=== PATIENT | female | born 1950 | race African-American/Black ===

== ENCOUNTER 2018-03-31 08:45 | Inpatient (IN) | payer OTHER ==
[~2018-03-31] VITALS: Ht 160 cm; Wt 146.1 kg
== END 2018-04-07 17:29 | disposition home or self-care (01) | DRG 470 ==
LOC: SURH 04-05 05:21 → O/R 04-05 05:21 → SURH 04-05 07:00 → EDBD 04-05 08:45 → SURH 04-05 08:45
PROVIDERS: ADMIT Orthopaedic Surgery
PROC: 0SRC0J9 Replacement of Right Knee Joint with Synthetic Substitute, Cemented, Open Approach (ICD-10-PCS; principal; 2018-04-05 07:00)
DX: M17.11 Unilateral primary osteoarthritis, right knee (principal); D62 Acute posthemorrhagic anemia; E66.01 Morbid (severe) obesity due to excess calories; Z72.0 Tobacco use

== ENCOUNTER → 2018-04-01 | Outpatient (CLI) | payer OTHER | END | disposition home or self-care (01) | LOC: NUCLEAR 15:01 | DX: I42.0 Dilated cardiomyopathy (principal) ==

== ENCOUNTER 2019-04-04 08:50 | Emergency (ER) | payer OTHER ==
[~2019-04-04] VITALS: Ht 160 cm; Wt 142.9 kg
[2019-04-04] MEDS ORDERED: LOSARTAN POTASS50 MG PO (09:10)
[2019-04-04] MEDS ORDERED: FORTAMET500 MG PO (09:10)
[2019-04-04] MEDS ORDERED: TOPROL XL50 M1 PO (09:11)
[2019-04-04] MEDS ORDERED: NAPR500T14 PO (09:12)
== END 2019-04-04 11:41 | disposition home or self-care (01) ==
LOC: ER 08:50
DX: M25.561 Pain in right knee (principal)

== ENCOUNTER 2019-04-24 19:34 | Inpatient (IN) | payer OTHER ==
[~2019-04-24] VITALS: Ht 160 cm; Wt 142.9 kg
[~2019-04-24 19:34] MED LIST: FORTAMET500 MG PO; LOSARTAN POTASS50 MG PO; NAPR500T14 PO; TOPROL XL50 M1 PO
[2019-04-24] MEDS ORDERED: HUMALOG100 UNIT/2 SQ (20:00)
[2019-04-24] MEDS ORDERED: ATORVASTATIN CA20 MG PO (20:00)
== END 2019-05-04 19:55 | disposition home health service (06) | DRG 988 ==
LOC: ER 19:34 → SEC-K 04-25 14:32 → MEDJ 04-25 14:32 → SEC-K 04-26 18:12 → MEDJ 04-26 18:14
PROVIDERS: Orthopaedic Surgery; ADMIT Specialist
PROC: B54DZZZ Ultrasonography of Bilateral Lower Extremity Veins (ICD-10-PCS; 2019-04-25)
PROC: 8E0ZXY6 Isolation (ICD-10-PCS; 2019-04-25)
PROC: 0T9B70Z Drainage of Bladder with Drainage Device, Via Natural or Artificial Opening (ICD-10-PCS; 2019-04-25)
PROC: 02HV33Z Insertion of Infusion Device into Superior Vena Cava, Percutaneous Approach (ICD-10-PCS; 2019-04-26)
PROC: 0S9C00Z Drainage of Right Knee Joint with Drainage Device, Open Approach (ICD-10-PCS; principal; 2019-04-29 07:00)
DX: L03.116 Cellulitis of left lower limb (principal); M00.861 Arthritis due to other bacteria, right knee; D62 Acute posthemorrhagic anemia; B37.41 Candidal cystitis and urethritis; E66.01 Morbid (severe) obesity due to excess calories; I10 Essential (primary) hypertension; I87.2 Venous insufficiency (chronic) (peripheral); N39.8 Other specified disorders of urinary system; E11.9 Type 2 diabetes mellitus without complications; A49.02 Methicillin resistant Staphylococcus aureus infection, unspecified site; Z79.4 Long term (current) use of insulin
CPT/HCPCS: 73721

== ENCOUNTER 2019-11-01 08:00 | Inpatient (IN) | payer OTHER ==
[~2019-11-01] VITALS: Ht 160 cm; Wt 142.9 kg
[~2019-11-01 08:00] MED LIST changes: +ATORVASTATIN CA20 MG PO; +HUMALOG100 UNIT/2 SQ
== END 2019-11-20 14:48 | DRG 488 ==
LOC: O/R 11-07 08:00 → SURH 11-14 08:00 → O/R 11-14 10:01 → SURH 11-14 11:30
PROVIDERS: ADMIT Orthopaedic Surgery; ATTEND Orthopaedic Surgery
PROC: 0SBC0ZX Excision of Right Knee Joint, Open Approach, Diagnostic (ICD-10-PCS; 2019-11-14)
PROC: 0SBC0ZZ Excision of Right Knee Joint, Open Approach (ICD-10-PCS; principal; 2019-11-14 11:30)
PROC: 30233N1 Transfusion of Nonautologous Red Blood Cells into Peripheral Vein, Percutaneous Approach (ICD-10-PCS; 2019-11-15)
PROC: 4A033R1 Measurement of Arterial Saturation, Peripheral, Percutaneous Approach (ICD-10-PCS; 2019-11-16)
PROC: 3E0F7GC Introduction of Other Therapeutic Substance into Respiratory Tract, Via Natural or Artificial Opening (ICD-10-PCS; 2019-11-16)
PROC: 02HV33Z Insertion of Infusion Device into Superior Vena Cava, Percutaneous Approach (ICD-10-PCS; 2019-11-17)
DX: T84.032A Mechanical loosening of internal right knee prosthetic joint, initial encounter (principal); M00.061 Staphylococcal arthritis, right knee; D62 Acute posthemorrhagic anemia; R06.89 Other abnormalities of breathing; B95.61 Methicillin susceptible Staphylococcus aureus infection as the cause of diseases classified elsewhere; M65.161 Other infective (teno)synovitis, right knee; T84.84XA Pain due to internal orthopedic prosthetic devices, implants and grafts, initial encounter; I10 Essential (primary) hypertension; E66.01 Morbid (severe) obesity due to excess calories; E11.9 Type 2 diabetes mellitus without complications; Z79.4 Long term (current) use of insulin

== ENCOUNTER 2019-12-18 09:31 | Inpatient (IN) | payer OTHER ==
[~2019-12-18] VITALS: Ht 162.6 cm; Wt 113.4 kg
--- NOTE | 2019-12-18 09:33 | NUR ---
SE RECIBE PTE EN AMBULANCIA ACOMPANADA DE PARAMEDICOS. PTE ALERTA Y ORIENTADA X3 TRANSF[facility]IDA DE [facility] POR QUE[facility] PRINCIPAL DE FIEBRE, DIFICULTAD PARA RESPIRAR Y AREA DE CIRUGIA EN RODILLA R+ INFECTADA, CON HERIDA ABIERTA, DOS PUNTOS ABIERTOS, CON SECRECIONES VERDOSAS. AL MOMENTO PTE NO REFIERE DOLOR YA QUE LE ADMINISTRARON 2 TYLENOL ANTES DE LLEGAR.
--- NOTE | 2019-12-18 09:37 | NUR ---
PTE CON CANULA NASAL @ 3 LITROS SATURANDO AL 96% CON OXIMETRIA DE PULSO.
--- NOTE | 2019-12-18 09:41 | NUR ---
PTE CON PICC LINE RN TANI RT, SE NOTIFICA PARA EVALUACION DE PICC LINE YA QUE PTE REFIERE LE KAYE ESTADO MOLESTANDO.
--- NOTE | 2019-12-18 12:26 | NUR ---
PTE EVALUADA POR LA DRA LE QUIEN [place] EL [place]. SE ORIENTA SOBRE EL MISMO, LO CUAL PTE Y FAMILIAR REFIEREN ENTENDER. SE REALIZAN MUESTRAS DE LABORATORIO SIGUIENDO MEDIDAS ASEPTICAS Y ESTERILES. SE CANALIZXA, AREA HERNAN DE EDEMA O ERITEMA. SE ADMINISTRA MEDICAMENTO. SE COLOCA MARQUES MATA ORDEN MEDICA Y SIGUIENDO MEDIDAS ASEPTICAS Y ESTERILES, EGRESO APROXIMADO DE 400ML COLOR AMARILLO INTENSO. SE NOTIFICA A MS MADRIGAL PARA EVALUACION DE SKIN TEAM POR AREA ALREDEDOR DEL PANAL CON ERITEMA E IRRITACION. MS BEATRIZ DE PICC LINE EVALUARA PTE PARA FUNCIONAMIENTO DEL MISMO.
--- NOTE | 2019-12-18 12:40 | NUR ---
SE EVALUA PACIENTE QUIEN LLEGA A JAY DE EMERGENCIAS PROCEDENTE DE [facility]. PACIENTE CON PICC LINE RT, 32 FLYNN DE INSERTADO CANALIZADO EN VENA BASILICA. PICC LINE INSERTADO EN ESTA INSTITUCION EL 11/17/19 SIN [facility]ES [facility]. PACIENTE FUE NILDA DE BRANDIE EL 11/20/19 PARA CONTINUAR CON TRATAMIENTO DE ANTIBIOTICOS EN [facility]. SE EVALUA PICC LINE Y SE SE OFRECE CUIDADO LOCAL. SE OBSERVA AREA DE INSERCION HERNAN DE SIGNOS DE INFECCION. SE REALIZA CAMBIO DE STATLOCK DEJANDO CATETER FIJO EN SITIO. SE LIMPIA AREA CON CLORAPREP. SE COLOCA NUEVO VENDAJE CON CHG CON CAMBIO PARA 12/23/19. SE IRRIGA CATETER CON NSS SIN RESISTENCIA. SE OBSERVA BUEN RETORNO SANGUINEO POR AMBOS LUMENES. PICC LINE PATENTE. SE REALIZA CAMBIO DE CONECTORES. SE OBSERVA EXTREMIDAD HERNAN DE EDEMA. PACIENTE NO REFIERE DOLOR Y/O MOLESTIA EN AREA. SE EVALUA PLACA DE PECHO REALIZADA EL KARLA DE HOY. SE OBSERVA TIP CATETER A NIVEL DE VENA CAVA SUPERIOR. SE RECOMIENDA MANTENER CATETER EN SITIO Y UTILIZAR PICC LINE PARA CONTINUAR CON TRATAMIENTO ORDENADO.
== END 2019-12-29 22:19 | disposition home or self-care (01) | DRG 862 ==
LOC: ER 09:31 → MEDJ 21:54 → MEDI 12-19 21:54 → MEDJ 12-29 22:19
PROVIDERS: ADMIT Internal Medicine; ATTEND Internal Medicine
PROC: BB24ZZZ Computerized Tomography (CT Scan) of Bilateral Lungs (ICD-10-PCS; principal; 2019-12-18)
PROC: 4A033R1 Measurement of Arterial Saturation, Peripheral, Percutaneous Approach (ICD-10-PCS; 2019-12-18)
PROC: 02H633Z Insertion of Infusion Device into Right Atrium, Percutaneous Approach (ICD-10-PCS; 2019-12-18)
PROC: 3E0F7SF Introduction of Other Gas into Respiratory Tract, Via Natural or Artificial Opening (ICD-10-PCS; 2019-12-18)
PROC: 4A12X4Z Monitoring of Cardiac Electrical Activity, External Approach (ICD-10-PCS; 2019-12-19)
PROC: 3E0F7GC Introduction of Other Therapeutic Substance into Respiratory Tract, Via Natural or Artificial Opening (ICD-10-PCS; 2019-12-23)
DX: T81.49XA Infection following a procedure, other surgical site, initial encounter (principal); J12.81 Pneumonia due to SARS-associated coronavirus; T84.53XA Infection and inflammatory reaction due to internal right knee prosthesis, initial encounter; I27.0 Primary pulmonary hypertension; D62 Acute posthemorrhagic anemia; L02.415 Cutaneous abscess of right lower limb; M00.9 Pyogenic arthritis, unspecified; B37.49 Other urogenital candidiasis; B96.89 Other specified bacterial agents as the cause of diseases classified elsewhere; B96.5 Pseudomonas (aeruginosa) (mallei) (pseudomallei) as the cause of diseases classified elsewhere; B96.6 Bacteroides fragilis [B. fragilis] as the cause of diseases classified elsewhere; B95.2 Enterococcus as the cause of diseases classified elsewhere; B96.29 Other Escherichia coli [E. coli] as the cause of diseases classified elsewhere; E66.01 Morbid (severe) obesity due to excess calories; E11.9 Type 2 diabetes mellitus without complications; M17.11 Unilateral primary osteoarthritis, right knee; M25.561 Pain in right knee; M25.461 Effusion, right knee; R06.02 Shortness of breath; Z72.0 Tobacco use